=== PATIENT | female | born 1995 | race Caucasian/White ===

== ENCOUNTER → 2018-02-14 | Outpatient (CLI) | payer OTHER | LOC: COL.RAD 09:29 | DX: N83.02 Follicular cyst of left ovary (principal) ==

== ENCOUNTER → 2018-02-25 | Outpatient (CLI) | payer OTHER | LOC: COL.RAD 09:17 | DX: R93.2 Abnormal findings on diagnostic imaging of liver and biliary tract (principal) | CPT/HCPCS: A9537 ==